=== PATIENT | male | born 1970 | race African-American/Black ===

== ENCOUNTER 2020-07-17 12:33 | Inpatient (IN) | payer MEDICAID ==
[~2020-07-17] VITALS: Ht 167.6 cm; Wt 72.6 kg
[2020-07-17] MEDS ORDERED: LORAZEPAM 2MG/ML CPJ IV ONE (13:00)
[2020-07-17 13:04] LABS: HEMATOCRIT. 36.5 % (42.0-52.0); HEMOGLOBIN. 11.8 g/dL (14.0-18.0); MEAN CORPUSCULAR HEMOGLOBIN 24.7 pg (28.0-32.0); MEAN CORPUSCULAR VOLUME 76.1 fL (80.0-94.0); MEAN PLATELET VOLUME 8.3 fl (7.4-10.4); PLATELET 228 x1000/uL (130-400); RED BLOOD CELL COUNT 4.79 mill/uL (4.7-6.1); RED CELL DISTRIBUTION WIDTH 21.6 % (11.6-14.6)
[2020-07-17 13:12] LABS: CHLORIDE 111 mEq/L (98-107)
[2020-07-17 13:16] LABS: INR 1.1; PARTIAL THROMBOPLASTIN TIME 24.8 sec (23.4-31.0); PROTHROMBIN TIME 11.4 sec (9.6-11.0)
[2020-07-17 13:17] LABS: ETHANOL BLOOD < 10 mg/dL
[2020-07-17 14:17] LABS: PLATELET ESTIMATE NORMAL
[2020-07-17] MEDS ORDERED: ONDANSETRON HCL 4MG/2ML INJ IV PRN (15:30)
[2020-07-17] MEDS ORDERED: DOCUSATE SODIUM 100MG CAPSULE PO PRN (15:30)
[2020-07-17] MEDS ORDERED: ACETAMINOPHEN 325MG TABLET PO PRN (15:30)
[2020-07-17] MEDS ORDERED: IPRATROPIUM/ALBUTEROL 0.5-3(2.5)MG/3ML NEB HHN PRN (15:30)
[2020-07-17] MEDS ORDERED: DIPHENHYDRAMINE 50MG/ML VIAL IV PRN (15:30)
[2020-07-17] MEDS ORDERED: HYDRALAZINE 20MG/ML VIAL IV PRN (15:30)
[2020-07-17] MEDS ORDERED: GUAIFENESIN 200MG/10ML SUGAR FREE UDC PO PRN (15:30)
[2020-07-17] MEDS ORDERED: CLONIDINE 0.1MG TABLET PO PRN (15:30)
[2020-07-17] MEDS ORDERED: LORAZEPAM 2MG/ML CPJ IV PRN (15:30)
[2020-07-17] MEDS ORDERED: MAGNESIUM/ALUMINUM HYDROXIDE/SIMETHICONE 30ML UDC PO PRN (15:30)
[2020-07-17] MEDS: ENOXAPARIN 40MG/0.4ML SYR SUBCUT SCH (16:57)
[2020-07-17] MEDS: SODIUM CHLORIDE 0.45% 1,000 ML IV SCH (18:39)
[2020-07-17 21:00] VITALS: BP 136/85
[2020-07-17] MEDS ORDERED: TRAMADOL 50MG TABLET PO PRN (21:45)
[2020-07-17] MEDS ORDERED: HYDR50TA MT (22:15)
[2020-07-17] MEDS ORDERED: QUET50TA MT (22:15)
[2020-07-17] MEDS: SODIUM CHLORIDE 0.9% INJ 3ML FLUSH IVF SCH (23:22)
[2020-07-18] VITALS (8 sets, daily range): BP systolic 118–135; BP diastolic 66–95
[2020-07-18 00:27] LABS: CREATINE KINASE MB FRACTION 6.3 ng/mL (0.5-3.6)
[2020-07-18] MEDS: SODIUM CHLORIDE 0.9% INJ 3ML FLUSH IVF SCH ×3 (05:12→22:25)
[2020-07-18 07:10] LABS: BASOPHILS % 0.7 % (0.0-2.0); EOSINOPHILS % 4.8 % (0.0-5.0); HEMATOCRIT. 39.6 % (42.0-52.0); HEMOGLOBIN. 12.8 g/dL (14.0-18.0); LYMPHOCYTES % 26.9 % (20.0-50.0); MEAN CORPUSCULAR HEMOGLOBIN 24.9 pg (28.0-32.0); MEAN CORPUSCULAR VOLUME 77.2 fL (80.0-94.0); MEAN PLATELET VOLUME 9.1 fl (7.4-10.4); MONOCYTES % 10.2 % (2.0-8.0); NEUTROPHILS % 57.4 % (40.0-76.0); PLATELET 225 x1000/uL (130-400); RED BLOOD CELL COUNT 5.13 mill/uL (4.7-6.1)
[2020-07-18 07:17] LABS: CREATINE KINASE 535 IU/L (39-308)
[2020-07-18 08:10] LABS: CHLORIDE 110 mEq/L (98-107)
[2020-07-18] MEDS: SODIUM CHLORIDE 0.45% 1,000 ML IV SCH (11:46)
[2020-07-18] MEDS: ENOXAPARIN 40MG/0.4ML SYR SUBCUT SCH (15:08)
[2020-07-19] VITALS (7 sets, daily range): BP systolic 116–150; BP diastolic 76–90
[2020-07-19] MEDS: SODIUM CHLORIDE 0.9% INJ 3ML FLUSH IVF SCH ×2 (05:13→14:10)
[2020-07-19] MEDS: SODIUM CHLORIDE 0.45% 1,000 ML IV SCH (05:13)
[2020-07-19 06:12] LABS: *AMPHETAMINES SCREEN URINE NEGATIVE (NEGATIVE); *BARBITURATES SCREEN URINE NEGATIVE (NEGATIVE); *BENZODIAZEPINES SCREEN URINE NEGATIVE (NEGATIVE); *COCAINE SCREEN URINE PRESUMTIVE POSITIVE (NEGATIVE)
[2020-07-19 06:13] LABS: CANNABINOID URINE SCREEN PRESUMTIVE POSITIVE (NEGATIVE); METHADONE URINE SCREEN NEGATIVE (NEGATIVE); OPIATES URINE SCREEN NEGATIVE (NEGATIVE); PHENCYCLIDINE URINE SCREEN NEGATIVE (NEGATIVE)
[2020-07-19 09:12] LABS: T4 FREE 0.78 ng/dL (0.76-1.46)
[2020-07-19] MEDS: ENOXAPARIN 40MG/0.4ML SYR SUBCUT SCH (17:07)
[2020-07-19] MEDS ORDERED: QUETIAPINE FUMARATE 50MG TABLET PO SCH (21:00)
[2020-07-19] MEDS ORDERED: TRAZODONE HCL 50MG TABLET PO SCH (21:00)
== END 2020-07-19 19:38 | DRG 198 ==
LOC: ER 12:33 → 8WST 14:50 → ENRESERV 20:06 → 8WST 07-18 11:11
PROVIDERS: ADMIT Internal Medicine; ATTEND Internal Medicine
DX: I24.8 Other forms of acute ischemic heart disease (principal); F31.9 Bipolar disorder, unspecified; I10 Essential (primary) hypertension; F17.210 Nicotine dependence, cigarettes, uncomplicated; R45.851 Suicidal ideations; Z20.822 Contact with and (suspected) exposure to COVID-19; F10.10 Alcohol abuse, uncomplicated; F14.10 Cocaine abuse, uncomplicated; Y90.9 Presence of alcohol in blood, level not specified
CPT/HCPCS: 36415; 71045; 80053; 80061; 80305; 80320; 82550; 82553; 83036; 83880; 84439; 84443; 84484; 85025; 85379; 87426; 93005; 93306; 93970; 99291; J1650; J2060; G0480

== ENCOUNTER 2021-05-13 01:47 | Emergency (ER) | payer MEDICAID ==
[~2021-05-13] VITALS: Ht 172.7 cm; Wt 71.0 kg
[~2021-05-13 01:47] MED LIST: HYDR50TA MT; QUET50TA MT
[2021-05-13 01:57] VITALS: BP 163/99
[2021-05-13] MEDS ORDERED: IBUPROFEN 600MG TABLET PO ONE (02:30)
[2021-05-13] MEDS ORDERED: IBUP-2029 MT (04:33)
== END 2021-05-13 05:11 | disposition home or self-care (01) ==
LOC: ER 01:56
DX: M79.18 Myalgia, other site (principal); F12.10 Cannabis abuse, uncomplicated; F14.10 Cocaine abuse, uncomplicated; I10 Essential (primary) hypertension
CPT/HCPCS: 73552; 99283